=== PATIENT | female | born 1975 | race American Indian/Alaskan Native ===

== ENCOUNTER 2021-02-11 13:07 | Emergency (ER) | payer OTHER ==
[~2021-02-11] VITALS: Wt 78.0 kg
--- NOTE | ~2021-02-11 | EMS ---
[address] [address] EMS Patient Care Report Name: HARVEY MCDONOUGH Room #: DEP Serafin#: [id number] Admission: 02/11/21 Attend Phys: Discharge: 02/11/21 Date of : 75 Report #: [id number] THIS REPORT FOR: //name// Report Transmitted: 02/11/2021 17:12 EMS Care Summary [place], [place]/[facility] Incident [id number] @ 02/11/2021 12:25 Incident Location [address] [facility] 18 Patient HARVEY MCDONOUGH Female, 46 Years 1975 Patient Address [address] [place] [address] Patient History Anemia, Patient Allergies Iron, Patient Medications Excedrin, Humira, Chief Complaint Allergic Reaction Disposition Transported No Lights/[place] Dispatch Reason Sick Person Transported To [facility] Narrative Arrived on the scene for a 46 y/o female that is lying in a chair in at the infusion clinic. Staff at the facility said that the Pt was getting an Iron infusion when she started to have chest pain, short of breath, and abd pain. Staff said that the Pt had the same reaction with a different Iron infusion [address] [address] EMS Patient Care Report Name: HARVEY MCDONOUGH Room #: DEP JOHN Betancourt#: [id number] Admission: 02/11/21 Attend Phys: Discharge: 02/11/21 Date of : 75 Report #: [id number] last week. Staff said that they gave the Pt 50mg of Benadryl and 20mg of Pepcid. Staff said that the chest pain and short of breath stopped after the Benadryl and Pepcid but still having abd pain. See Pt Assessment Abd pain See Flowchart. Assisted Pt from the chair to the cot. Transported to the hospital with zero change or incidents. Assisted Pt from the cot to the bed. Transferred care to receiving facility. Initial Vitals @12:50P: 70,R: 14,BP: 114/70,Pain: 2/10,GCS: 15,Revised Trauma: 12, @13:03P: 75,R: 14,BP: 108/65,Pain: 2/10,GCS: 15,SpO2: 99,Revised Trauma: 12, Assessments @12:42MENTAL:Time Oriented,Event Oriented,Person Oriented,Place Oriented,SKIN:HEENT:Head/Face: No Abnormalities,Eyes: No Abnormalities,Neck/Airway: No Abnormalities,LUNG SOUNDS:General: No Abnormalities,ABDOMEN:General: No Abnormalities,PELVIS//GI:No Abnormalities,EXTREMITIES:Left Arm: No Abnormalities,Right Arm: No Abnormalities,Left Leg: No Abnormalities,Right Leg: No Abnormalities,PULSE:Radial: 2+ Normal,NEURO:No Abnormalities, Impression Allergic Reaction Procedures @12:42ALS AssessmentResponse: UnchangedSucceeded Timeline 12:23,Call Received 12:23,Dispatch Notified 12:25,Dispatched 12:27,En Route 12:38,On Scene 12:42,At Patient 12:42,ALS Assessment,Response: UnchangedSucceeded, 12:50,BP: 114/70 M,PULSE: 70,RR: 14 R,SPO2: Ox,ETCO2: ,BG: ,PAIN: 2,GCS: 15, 12:51,Depart Scene 13:03,BP: 108/65 M,PULSE: 75,RR: 14 R,SPO2: 99 Ox,ETCO2: ,BG: ,PAIN: 2,GCS: 15, 13:04,At Destination 13:21,Call Closed Disclaimer [facility] [address] [place] [address] EMS Patient Care Report Name: HARVEY MCDONOUGH Room #: DEP [facility]#: [id number] Admission: 02/11/21 Attend Phys: Discharge: 02/11/21 Date of : 75 Report #: [id number] v1.1 Copyright 2020 [employer] This EMS Care Summary contains data elements from the applicable legal record (which may be displayed differently). It is designed to provide pertinent information for the following purposes: continuity of care, clinical quality, and state data reporting. The complete legal record is available to ED staff and administrators of the receiving hospital in [employer]'s Patient Tracker. All data is provided "as is."
[2021-02-11 13:39] LABS: ABSOLUTE NEUTROPHILS 3.9 thou/uL (1.4-8.2); BASOPHILS 0.6 % (0.0-2.0); EOSINOPHILS 1.8 % (0.0-3.0); HEMATOCRIT 37.2 % (37.0-47.0); HEMOGLOBIN 12.5 gm/dL (12.0-15.0); LYMPHOCYTES 24.1 % (24.0-44.0); MCH 29.7 pg (26.0-34.0); MCHC 33.5 g/dL (28.0-37.0); MCV 88.5 fL (80.0-100.0); MONOCYTES 11.4 % (1.0-8.0); PLATELET COUNT 197 thou/uL (150-400); POLYS 62.1 % (36.0-66.0); RBC 4.21 mil/uL (4.20-5.00); WBC 6.3 thou/uL (4.0-11.0)
[2021-02-11 13:55] LABS: CALCIUM 8.3 mg/dL (8.5-10.1); CREATININE 0.6 mg/dL (0.6-1.0); POTASSIUM 3.5 mmol/L (3.5-5.1)
[2021-02-11 14:00] LABS: ALBUMIN 3.5 g/dL (3.4-5.0); TOTAL BILIRUBIN 0.5 mg/dL (0.2-1.0); TOTAL PROTEIN 6.8 g/dL (6.4-8.2)
[2021-02-11 14:03] LABS: URINE BILIRUBIN NEGATIVE (Negative); URINE BLOOD NEGATIVE (Negative); URINE CLARITY CLEAR; URINE COLOR YELLOW; URINE GLUCOSE-RANDOM* NEGATIVE (Negative); URINE KETONES NEGATIVE (Negative); URINE LEUKOCYTES-REFLEX 3+ (Negative); URINE NITRITE-REFLEX NEGATIVE (Negative); URINE PROTEIN (DIPSTICK) TRACE (Negative); URINE UROBILINOGEN 0.2 E.U./dl (0.2-1.0)
[2021-02-11 14:11] LABS: BACTERIA-REFLEX >30 Many /HPF (None Seen); CASTS None Seen /LPF (None Seen); CRYSTALS None Seen /LPF (None Seen); SQUAMOUS 4-10 Moderate /LPF (0-3); URINE RBC None Seen /HPF (NONE SEEN)
[2021-02-11] MEDS ORDERED: ONDANSETRON HCL4 M2 PO (14:12)
[2021-02-11 14:15] VITALS: BP 110/61
--- NOTE | 2021-02-12 07:29 | EKG ---
[address] [address] ELECTROCARDIOGRAM REPORT Name: HARVEY MCDONOUGH Room #: DEP [facility]#: [id number] Admission: 02/11/21 Attend Phys: Discharge: 02/11/21 Date of : 75 Report #: [id number] [facility] ED Test Date: 2021-02-11 Test Time: 13:17:36 Pat Name: HARVEY MCDONOUGH Department: Room: Gender: F First Sampler: ALYSSA : 1975 Requested By: Chuck Angel Order Number: [id number] MD: Dann Vazquez Measurements Intervals [place] Rate: 73 P: 57 NE: 123 QRS: 70 QRSD: 103 T: 54 QT: 406 QTc: 448 Interpretive Statements Sinus rhythm Abnormal R-wave progression, early transition Baseline wander in lead(s) V6 No previous ECG available for comparison Electronically Signed On 02-12-2021 7:29:14 CDT by Dann Vazquez [email or web address] <ELECTRONICALLY SIGNED> By: Dann Vazquez MD, [facility] 02/12/21 0729 16 16 Dann Vazquez MD, FAC /EPI
[2021-02-13] MEDS ORDERED: AMOXICILLIN 50500 M1 PO (08:20)
== END 2021-02-11 14:15 | disposition home or self-care (01) ==
LOC: ER 13:07
PROVIDERS: Emergency Medicine
DX: K50.90 Crohn's disease, unspecified, without complications (principal); G43.909 Migraine, unspecified, not intractable, without status migrainosus; Z91.09 Other allergy status, other than to drugs and biological substances